=== PATIENT | female | born 1995 | race Caucasian/White ===

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

== ENCOUNTER 2021-07-24 17:10 | Emergency (ER) | payer BC, MEDICAID ==
[2021-07-24 17:20] VITALS: BP 130/89
[2021-07-24] MEDS ORDERED: BACTRIM DS TABLET PO STA (17:28)
[2021-07-24] MEDS ORDERED: BACTRIM DS TABLET PO ONE (17:31)
--- NOTE | 2021-07-24 17:34 | ERPHSYRPT ---
- History of Present Illness Time Seen by Provider: 07/24/21 17:27 Source: patient Exam Limitations: no limitations Patient Subjective Stated Complaint: pt here for a possible insect bite to right upper thigh area since wednesday Triage Nursing Assessment: pt alert, walked in, resp easy, skin w.d.p , face mask in place, has open area to upper thigh draining, with redness around site Physician History: 45 years old female presented in the ER with chief complaint of right upper thigh insect bite while she was camping outside almost 5 days ago. This started as a small bite and later blister and started draining yellow-green stuff with pain around. No fever or chills reported. Up-to-date with immunizations. Timing/Duration: day(s) (4), gradual onset, worse Quality: itchy, painful Severity: moderate Location: extremities Possible Causes: insect bite Associated Symptoms: rash, swelling/mass/lumps Allergies/Adverse Reactions: No Known Drug Allergies Allergy (Verified 07/24/21 17:20) Home Medications: Buspirone HCl 1 ea DAILY 07/24/21 [History] Ferrous Sulfate 1 ea DAILY 07/24/21 [History] Meloxicam [Mobic] 1 ea DAILY 07/24/21 [History] Phentermine HCl [Adipex-P] 37.5 mg PO DAILY 07/24/21 [History] Hx Tetanus, Diphtheria Vaccination/Date Given: No Hx Influenza Vaccination/Date Given: No Hx Pneumococcal Vaccination/Date Given: No Immunizations Up to Date: Yes Travel Risk - International Travel Have you traveled outside of the country in past 3 weeks: No - Coronavirus Screening Are you exhibiting any of the following symptoms?: No Close contact with a COVID-19 positive Pt in past 14-21 Days: No - Vaccine Status Have you recieved a Covid-19 vaccination: No - Review of Systems Constitutional: No Symptoms Ears, Nose, & Throat: No Symptoms Respiratory: No Symptoms Cardiac: No Symptoms Abdominal/Gastrointestinal: No Symptoms Genitourinary Symptoms: No Symptoms Musculoskeletal: No Symptoms Skin: Rash, Skin Lesions Neurological: No Symptoms Psychological: No Symptoms Endocrine: No Symptoms Hematologic/Lymphatic: No Symptoms - Past Medical History Pertinent Past Medical History: No Other Medical History: back problems - Past Surgical History Past Surgical History: Yes Gastrointestinal: Cholecystectomy - Social History Smoking Status: Never smoker Exposure to second hand smoke: No Drug Use: none Patient Lives Alone: No - Female History Hx Last Menstrual Period: now Hx Now: No - Nursing Vital Signs Nursing Vital Signs: Initial Vital Signs Temperature 97.2 F 07/24/21 17:16 Pulse Rate 73 07/24/21 17:16 Respiratory Rate 18 07/24/21 17:16 Blood Pressure 130/89 07/24/21 17:16 O2 Sat by Pulse Oximetry 98 07/24/21 17:16 Pain Scale Pain Intensity 6 - Physical Exam General Appearance: no apparent distress, alert Ears, Nose, Throat Exam: normal ENT inspection Neck Exam: normal inspection, full range of motion Respiratory Exam: normal breath sounds, lungs clear Cardiovascular Exam: regular rate/rhythm, normal heart sounds Extremity Exam: normal range of motion, other (3 x 2 cm area of redness with central bite carrillo. Mild tenderness. No obvious discharge.) Neurologic Exam: alert, oriented x 3, cooperative Skin Exam: normal color, rash SpO2 Interpretation: normal SpO2: 98 O2 Delivery: Room Air - Progress Progress: unchanged Progress Note: 07/24/21 17:36 Started on Bactrim and outpatient follow-up recommended. Counseled pt/family regarding: diagnosis, need for follow-up - Departure Departure Disposition: Home Clinical Impression: Insect bite Condition: Stable Critical Care Time: No Referrals: ARASH PEPE [Primary Care Provider] - Follow Up with PCP/3 days Instructions: MRSA (DC), Insect Bites and Stings (DC) Additional Instructions: Follow-up with primary care for reevaluation. Return to ER for worsening pains, increased swelling redness discharge/fever chills etc. Prescriptions: Smz/Tmp Ds Tablet [Bactrim Ds Tablet] 1 udtab PO BID #14 tablet
[2021-07-24 17:56] VITALS: PULSE 74; O2SAT 97
== END 2021-07-24 17:55 | disposition home or self-care (01) ==
LOC: ED 17:10
DX: S70.361A Insect bite (nonvenomous), right thigh, initial encounter (principal); W57.XXXA Bitten or stung by nonvenomous insect and other nonvenomous arthropods, initial encounter; Z79.899 Other long term (current) drug therapy; Z28.310 Unvaccinated for COVID-19
CPT/HCPCS: 99283; A9270-GY